=== PATIENT | female | born 1960 | race Caucasian/White ===

== ENCOUNTER → 2016-11-29 | Outpatient (CLI) | payer OTHER, BC ==
--- NOTE | 2016-11-29 15:49 | DIAGNOSTIC IMAGING REPORT ---
RIGHT ELBOW 3 VIEWS CLINICAL HISTORY: Fall with right elbow pain. FINDINGS: 3 views of the right elbow are obtained. No prior studies are available for comparison at the time of dictation. The skeletal structures are osteopenic. No fracture is seen. The joint spaces of the elbow appear preserved. No joint effusion is identified. Mild dorsal soft tissue edema is noted. IMPRESSION: Mild dorsal soft tissue swelling with no radiographic evidence of fracture. Electronically signed by: Kash Gagnon M.D. 11/29/2016 3:47 PM Dictated Date/Time: 11/29/2016 3:46 PM
== END | disposition home or self-care (01) ==
LOC: C.RAD1850 15:25
PROVIDERS: ATTEND Nurse Practitioner Adult Health
DX: M25.521 Pain in right elbow (principal)

== ENCOUNTER 2020-07-16 20:06 | Observation (INO) ==
[2020-07-16] MEDS ORDERED: KETOROLAC TROMETHAMINE 15 MG/ML VIAL IV ONE (20:45)
[2020-07-16] MEDS ORDERED: ACETAMINOPHEN 1,000 MG/100 ML VIAL IV STA (20:45)
[2020-07-16 20:52] LABS: Basophils # (auto) 0.01 K/uL (0-0.2); Basophils % (auto) 0.1 %; Eosinophils # (auto) 0.07 K/uL (0-0.5); Eosinophils % (auto) 0.6 %; Hemoglobin 13.8 g/dL (12.0-16.0); Immature Granulocytes # (auto) 0.02 K/uL (0.00-0.02); Immature Granulocytes % (auto) 0.2 %; Lymphocytes # (auto) 2.16 K/uL (1.2-3.4); Lymphocytes % (auto) 17.5 %; Mean Corpuscular Hemoglobin 29.9 pg (25-34); Mean Corpuscular Hgb Conc 32.1 g/dL (32-36); Mean Corpuscular Volume 93.1 fL (80-100); Mean Platelet Volume 10.6 fL (7.4-10.4); Monocytes # (auto) 0.85 K/uL (0.11-0.59); Monocytes % (auto) 6.9 %; Neutrophils # (auto) 9.24 K/uL (1.4-6.5); Neutrophils % (auto) 74.7 %; Platelet Count 228 K/uL (130-400); RDW Coefficient of Variation 12.7 % (11.5-14.5); RDW Standard Deviation 43.2 fL (36.4-46.3); Red Blood Count 4.62 M/uL (4.2-5.4); White Blood Count 12.35 K/uL (4.8-10.8)
[2020-07-16 20:59] LABS: Alanine Aminotransferase 21 U/L (12-78); Albumin Level 3.4 gm/dl (3.4-5.0); Aspartate Aminotransferase 12 U/L (15-37); BUN Creatinine Ratio 11.4 (10-20); Blood Urea Nitrogen 9 mg/dl (7-18); Calcium 9.3 mg/dl (8.5-10.1); Carbon Dioxide 30 mmol/L (21-32); Chloride 103 mmol/L (98-107); Creatinine Clr Calc Pharmacy 67.1 ml/min; Est GFR (African American) 98.1; Est GFR (Non-African American) 84.7; Glucose 151 mg/dl (70-99); Lipase 104 U/L (73-393); Magnesium 2.3 mg/dl (1.8-2.4); Potassium 3.8 mmol/L (3.5-5.1); Sodium 138 mmol/L (136-145)
[2020-07-16 21:10] LABS: Albumin Globulin Ratio 0.8 (0.9-2); Alkaline Phosphatase 81 U/L (45-117); Bilirubin,Total 0.6 mg/dl (0.2-1); Globulin 4.3 gm/dl (2.5-4.0); Total Protein 7.7 gm/dl (6.4-8.2); Troponin I < 0.015 ng/ml (0-0.045)
--- NOTE | 2020-07-16 21:59 | Emergency Department Note ---
History of Present Illness General Chief complaint: Abdominal Pain Stated complaint: CHEST PAIN FOR 4 DAYS Time Seen by Provider: 07/16/20 20:19 Source: patient Mode of arrival: ambulatory Limitations: no limitations History of Present Illness Provider complaint: Chest pain Onset (ago): day(s) 4 Location: chest Severity: moderate Pain Consistency: + intermittent Maximum Pain Intensity: 2 Current Pain Intensity: 2 Quality: + sharp Relieved By: + none Exacerbated By: + movement and + other (Deep breath) Associated symptoms: + loss of appetite; no chest pain, no fever/chills, no nausea/vomiting and no syncope Treatments prior to arrival: none This is a 60-year-old female from home who presents due to complaints of chest pain this week. Patient states on Friday she began noticing "a catch" beneath the left breast. She noted that this was worse lying flat and worse with a deep breath. States this otherwise seem to be intermittent was not otherwise tied to exertion. Patient denies any previous similar episodes. Patient states over the next 2 days she then began to notice intermittent upper back pain and headaches. Denies dizziness, vision changes, nausea or vomiting. Patient states yesterday she did not have a normal appetite although denies being overtly nauseated. Patient states then yesterday and today the pain seemed to be occurring on the right underneath the right breast on the same location. Patient denies any other abdominal pain. Patient thought perhaps this was all related to gas and tried taking a laxative. She did have positive bowel movements, no black or bloody stools. No change in her urine. Patient has had a prior , no other abdominal surgeries. Patient denies any recent change in activity, change in diet, or change in medications. No known sick contacts. No known exposure to any coronavirus positive individual. Pt seen during a time of high acuity and national emergency pandemic while wearing PPE. Home Medications Home Medications Medication Instructions Recorded Confirmed Type alfalfa 250 mg tablet 1,250 mg PO DAILY tab 01/24/20 07/16/20 History ascorbic acid (vitamin C) 1,000 mg 1,000 mg PO DAILY tab 01/24/20 07/16/20 History tablet calcium carbonate 500 mg calcium 500 mg PO DAILY 01/24/20 07/16/20 History (1,250 mg) tablet garlic 1,000 mg capsule 1,000 mg PO DAILY 01/24/20 07/16/20 History multivitamin 1 tab PO DAILY 01/24/20 07/16/20 History omega-3 fatty acids 1,000 mg 1,000 mg PO DAILY 01/24/20 07/16/20 History capsule vitamin E 200 unit capsule 200 units PO DAILY 01/24/20 07/16/20 History cholecalciferol (vitamin D3) 1,000 unit PO DAILY 07/16/20 07/16/20 History [Vitamin D3] Allergies Allergy/AdvReac Type Severity Reaction Status Date / Time No Known Allergies Allergy Verified 07/16/20 21:03 Past Med/Surg History Medical History No pertinent past medical history Surgical History S/P section S/P wisdom tooth extraction Family History Father Myocardial infarction Denies family history of Ovarian cancer Prostate cancer Breast cancer Colorectal cancer Social History Smoking Status: Never smoker Hx Alcohol Use: Yes Alcohol type: wine Hx Substance Use: No Preferred Language: Grenadian Communication Ability: Effective Visual Impairment: No Limitations Hearing Ability: Normal Beliefs That Will Affect Care: None marital status: Current Living Situation: Spouse current occupational status: employed current occupation: [employer] Other Information That Helps Us Care for You: No Feels Safe at Home: Yes Childhood Exposure to Second-Hand Smoke: Yes Dental Care, Regularly: Yes Physical Activity Frequency: 5-6 Times per Week Seatbelt Use: always Sunscreen Use: Yes Do you think of yourself as: straight/heterosexual Review of Systems See HPI for pertinent positives & negatives. and A total of 10 systems reviewed and were otherwise negative Physical Exam Vital Signs Vital Signs - 24 hr 07/17/20 01:04 Respiratory Rate 16 GENERAL: alert, well appearing, well nourished, no distress, non-toxic EYE EXAM: normal conjunctiva, PERRL and EOM's grossly intact OROPHARYNX: no exudate, no erythema, lips, buccal mucosa, and tongue normal and mucous membranes are moist NECK: supple, no nuchal rigidity, no adenopathy, non-tender LUNGS: Clear to auscultation. Normal chest wall mechanics, no w/r/r HEART: no murmurs, S1 normal and S2 normal, no reproducible tenderness over the ribs ABDOMEN: abdomen soft, non-tender, normo-active bowel sounds, no masses, no rebound or guarding. BACK: Back is symmetrical on inspection and there is no deformity, no midline tenderness, no CVA tenderness. SKIN: no rashes and no bruising UPPER EXTREMITIES: upper extremities are grossly normal. FROM, nml pulses b/l. LOWER EXTREMITIES: No pitting edema. FROM, nml pulses b/l. NEURO EXAM: Normal sensorium, cranial nerves II-XII grossly intact, normal speech, no gross weakness of arms, no gross weakness of legs. Gross sensation intact. Course Course 2321: Pt updated on results and plan. 0026: Discussed with Dr. Oliver. Administered Medications Acetaminophen (Acetaminophen 325 Mg Tab) 650 mg PO Q4H PRN PRN Reason: Pain or Fever Stop: 08/16/20 02:00 Last Admin: 07/17/20 18:51 Dose: 650 mg Documented by: [id number] Apixaban (Apixaban 5 Mg Tablet) 5 mg PO BID NYA Stop: 08/16/20 20:59 Last Admin: 07/17/20 20:42 Dose: 5 mg Documented by: [id number] Discontinued Medications Apixaban (Apixaban 5 Mg Tablet) 5 mg PO NOW STA Stop: 07/17/20 11:18 Last Admin: 07/17/20 11:51 Dose: 5 mg Documented by: [id number] Famotidine (Famotidine 20mg/5ml Iv Push) 20 mg IV ONE STA Stop: 07/16/20 22:07 Last Admin: 07/16/20 22:11 Dose: 20 mg Documented by: [id number] Heparin Sodium (Porcine) (Heparin Sod 5,000 Unit/0.5 Ml Vial) Confirm Administered Dose 5,000 units .ROUTE .STK-MED ONE Stop: 07/16/20 23:51 Last Admin: 07/17/20 00:08 Dose: 5,000 units Documented by: [id number] Cosigned by: [id number] Heparin Sodium/Dextrose (Heparin Iv Standard With Bolus) 1 ea IV NOW STA; Protocol Stop: 07/16/20 23:34 Last Admin: 07/17/20 00:13 Dose: Not Given Documented by: [id number] Acetaminophen (Ofirmev) 1,000 mg in 100 mls @ 400 mls/hr IV NOW STA Stop: 07/16/20 20:59 Last Infusion: 07/16/20 21:13 Dose: 0 mls/hr Documented by: [id number] Admin: 07/16/20 20:54 Dose: 400 mls/hr Documented by: [id number] Heparin Sodium/Dextrose (Heparin Sodium/Dextrose) 25,000 units in 500 mls @ 0 mls/hr IV .Q0M [facility]; Protocol Stop: 08/15/20 23:44 Last Titration: 07/17/20 11:18 Dose: 0 units/hr, 0 mls/hr Documented by: [id number] Cosigned by: [id number] Titration: 07/17/20 08:30 Dose: 950 units/hr, 19 mls/hr Documented by: [id number] Cosigned by: [id number] Titration: 07/17/20 07:20 Dose: 0 units/hr, 0 mls/hr Documented by: [id number] Cosigned by: [id number] Admin: 07/17/20 00:11 Dose: 1,050 units/hr, 21 mls/hr Documented by: [id number] Cosigned by: [id number] Ioversol (Optiray 320 125ml) 119 ml IV ONCE ONE Stop: 07/16/20 22:54 Last Admin: 07/16/20 22:53 Dose: 119 ml Documented by: [id number] Ketorolac Tromethamine (Ketorolac Tromethamine 15 Mg/Ml Vial) 10 mg IV NOW ONE Stop: 07/16/20 20:46 Last Admin: 07/16/20 20:54 Dose: 10 mg Documented by: [id number] Critical Care Time Critical Care Time: Yes Total Critical Care Time: 35 Critical care of 35 min performed to assess and manage high likelihood of life- threatening chest pain, involving labs and imaging performed with assessment to evaluate chest pain diagnosis with frequent reassessment. This time includes bedside time, treatment discussions with patient/family/consultants, documentation time and excludes procedure time. Medical Decision Making Differential Diagnosis Differential diagnoses includes but is not limited to acute coronary syndrome, myocardial infarction, pericarditis, pulmonary embolus, aortic dissection, pneumonia, pneumothorax, musculoskeletal, shingles, esophageal. Medical Records Attestation: I reviewed the patient's medical records. Home Medications Current Medication List: was personally reviewed by me Laboratory Data Attestation: I reviewed the patient's lab results. Result diagrams: 07/17/20 08:36 07/17/20 08:36 Lab Results 07/16/20 07/16/20 07/16/20 Range/Units 20:30 20:30 20:30 WBC 12.35 H (4.8-10.8) K/uL RBC 4.62 (4.2-5.4) M/uL Hgb 13.8 (12.0-16.0) g/dL Hct 43.0 (37-47) % MCV 93.1 (80-100) fL MCH 29.9 (25-34) pg MCHC 32.1 (32-36) g/dL RDW Std Deviation 43.2 (36.4-46.3) fL RDW Coeff of Michelle 12.7 (11.5-14.5) % Plt Count 228 (130-400) K/uL MPV 10.6 H (7.4-10.4) fL Immature Gran % (Auto) 0.2 % Neut % (Auto) 74.7 % Lymph % (Auto) 17.5 % [place] % (Auto) 6.9 % Eos % (Auto) 0.6 % Baso % (Auto) 0.1 % Neut # (Auto) 9.24 H (1.4-6.5) K/uL Lymph # (Auto) 2.16 (1.2-3.4) K/uL [place] # (Auto) 0.85 H (0.11-0.59) K/uL Eos # (Auto) 0.07 (0-0.5) K/uL Baso # (Auto) 0.01 (0-0.2) K/uL Immature Gran # (Auto) 0.02 (0.00-0.02) K/uL D-Dimer 3940 H* (0-500) ug/L FEU Sodium 138 (136-145) mmol/L Potassium 3.8 (3.5-5.1) mmol/L Chloride 103 (98-107) mmol/L Carbon Dioxide 30 (21-32) mmol/L Anion Gap 4.0 (3-11) BUN 9 (7-18) mg/dl Creatinine 0.76 (0.6-1.2) mg/dl Est Cr Clr Drug Dosing 67.1 ml/min Est GFR ( Amer) 98.1 Est GFR (Non-Af Amer) 84.7 BUN/Creatinine Ratio 11.4 (10-20) Glucose 151 H (70-99) mg/dl Calcium 9.3 (8.5-10.1) mg/dl Magnesium 2.3 (1.8-2.4) mg/dl Total Bilirubin 0.6 (0.2-1) mg/dl AST 12 L (15-37) U/L ALT 21 (12-78) U/L Alkaline Phosphatase 81 (45-117) U/L Troponin I < 0.015 (0-0.045) ng/ml Total Protein 7.7 (6.4-8.2) gm/dl Albumin 3.4 (3.4-5.0) gm/dl Globulin 4.3 H (2.5-4.0) gm/dl Albumin/Globulin Ratio 0.8 L (0.9-2) Lipase 104 (73-393) U/L TSH 1.780 (0.300-4.500) uIu/ml Imaging Data Attestation: I personally reviewed and interpreted this imaging study as follows: My Impression: X-ray: I interpreted the following studies. Chest: A single view study of the chest was reviewed and was negative for cardiomegaly, focal infiltrate, effusion, pulmonary edema, or wide mediastinum. Radiologist's Impression: Ultrasound abdomen limited: No intrahepatic lesion or ductal dilatation. CBD 2 mm. Slightly contracted gallbladder. Negative for stones. Normal right kidney at 10.4 cm. Radiologist: Kennedy Jennings MD CTA chest: Left upper lobe posterior segment 1.5 cm area of patchy groundglass opacity. Consider focal pneumonitis. Consider a small area of pulmonary infarct secondary to PE. Mild shaina-fissural thickening right major fissure. . Anterior right middle lobe triangle area of patchy opacity potentially represents infarct secondary to pulmonary embolism. Normal caliber of the aorta. Heart and pericardium are unremarkable. Negative for coronary calcification. Pulmonary artery: Normal caliber of the main pulmonary artery. Negative for right ventricular strain. Extensive pulmonary emboli are noted involving the right lower lobe segmental, subsegmental vessels, right middle lobe and right proximal upper lobe pulmonary artery. Additional thrombus noted in the left upper lobe and proximal left lower lobe segmental pulmonary arteries. Bones: Negative for fracture. Summary: 1. Right greater than left moderate pulmonary embolism with peripheral triangular areas of probable infarct involving the anterior inferior right middle lobe and posterior left upper lobe. 2. Negative for right ventricular strain. Radiologist: Kennedy Jennings MD ECG Data Attestation: I personally reviewed and interpreted this ECG as follows: Indication: + chest pain Rate (beats per minute): 86 Rhythm: + normal sinus ECG Intervals/blocks: + Normal QRS and + Normal QT ECG Desdemona: + Normal ECG ST segments: + Normal ST segments Blood Pressure Blood Pressure Findings: Elevated blood pressure Blood Pressure Disposition: further management by hospitalist MDM Narrative Patient presenting here with atypical intermittent chest pains initially on the left and now on the right. Patient low risk for ACS and low risk for PE, however could not rule out using PERC criteria so a dimer was added to the labs that were drawn and sent. Initial chest x-ray unremarkable, however patient had an elevated d-dimer and was sent for CT angiography of the chest. CT unfortunately showed multiple bilateral PEs with likely areas of evolving pulmonary infarct. No evidence of RV strain, and no saddle embolus. Patient remained hemodynamically stable throughout. Patient's troponin negative, other labs reassuring. Patient made aware of all results and need for additional evaluation as well as initiation of IV anticoagulation. Heparin bolus and drip was ordered, case discussed with hospitalist. An order was placed for continuous cardiac monitoring. The monitor shows a rate of 66_ with normal sinus_ rhythm. Impression & Plan Chest pain, Pulmonary embolism Discharge Plan Visit Data Chief Complaint: Abdominal Pain Stated Complaint: CHEST PAIN FOR 4 DAYS ED Provider: Jennie Zamora Discharge Problem: Chest pain, Pulmonary embolism Patient Disposition: Admitted As Inpatient Discharge Instructions Interventions: ED Discharge Assessment Last Done: 07/17/20 01:20 Discharge Problem: Chest pain Qualifiers: Chest pain type: unspecified Qualified Code(s): R07.9 - Chest pain, unspecified Pulmonary embolism Qualifiers: Pulmonary embolism type: multiple subsegmental (without acute cor pulmonale) Qualified Code(s): I26.94 - Multiple subsegmental pulmonary emboli without acute cor pulmonale
[2020-07-16] MEDS ORDERED: FAMOTIDINE 20MG/5ML IV PUSH IV STA (22:06)
[2020-07-16 22:19] LABS: D Dimer 3940 ug/L FEU (0-500)
[2020-07-16] MEDS ORDERED: OPTIRAY 320 125ml IV ONE (22:53)
[2020-07-16] MEDS ORDERED: HEPARIN SODIUM/DEXTROSE 25,000 UNITS/500 ML BAG IV SCH (23:45)
[2020-07-16] MEDS ORDERED: HEPARIN SOD 5,000 UNIT/0.5 ML VIAL ONE (23:50)
--- NOTE | 2020-07-17 00:39 | History & Physical Report ---
Date of Service July 17, 2020 Assessment & Plan (1) Pulmonary embolism: Previously relatively healthy 60 y/o female with first episode of Pulmonary Embolism. - No clear identifiable risk factors, unclear etiology. - She has been stable not requiring any supplemental O2 - Heparin bolus started in ED and will continue treatment with Heparin. - Case management consult placed to help with any authorizations for outpatient anticoagulation. - CTA Chest showed = Right greater than left moderate pulmonary embolism with peripheral triangular areas of probable infarct involving the anterior inferior right middle lobe and posterior left upper lobe. 2. Negative for right ventricular strain. - Cardiac monitoring overnight. - Continuous Pulse Ox - Defer any genetic workup to outpatient provider. DVT ppx: Heparin FENGI: Heart healthy diet Code: Full Dispo: Obs - Med/surg tele (2) Chest pain: Negative trop in ED, will complete trend. Most likely referred from pleural involvement from PEs. Not requiring any analgesics, Tylenol PO ordered PRN for Pain Vital signs reassuring, not tachycardic. History of Present Illness Chief Complaint: Chest Pain Primary Care Provider: Yvon Orlando DO Vanesa Stewart is a 60 y/o female relatively previous healthy hx of dyslipidemia presented to [facility] ED with chest pain. She has had chest pain starting about 5 days ago. It is located to left anterior chest that was worse with deep breaths. She noticed no significant shortness of breath. She notes she thought it was related to GI gas. She took a laxative, had a normal BM. The pain lessened mildly the next day. She then noticed the pain migrated to the right anterior chest, with same pain on deep breaths. She notes pain was improved by not moving or taking deep breaths. She noted she had last night of posterior lower neck pain that radiated to her left anterior chest pain. She denies any nausea, fever, chills, palpitations, vomiting. She denies any leg pain or leg swelling. She did not go on any long car/plane trips prior to onset of symptoms. No recent surgeries or prolonged periods of immobilization. No prior PEs or DVTs. She was found to have PEs to both lungs with probable infarct involving the anterior inferior right middle lobe and posterior left upper lobe. She notes no significant discomfort at the moment. She is stable, not requiring any supplemental O2. Allergies Allergy/AdvReac Type Severity Reaction Status Date / Time No Known Allergies Allergy Verified 07/16/20 21:03 Home Medications Home Medications Medication Instructions Recorded Confirmed Type alfalfa 250 mg tablet 1,250 mg PO DAILY tab 01/24/20 07/16/20 History ascorbic acid (vitamin C) 1,000 mg 1,000 mg PO DAILY tab 01/24/20 07/16/20 History tablet calcium carbonate 500 mg calcium 500 mg PO DAILY 01/24/20 07/16/20 History (1,250 mg) tablet garlic 1,000 mg capsule 1,000 mg PO DAILY 01/24/20 07/16/20 History multivitamin 1 tab PO DAILY 01/24/20 07/16/20 History omega-3 fatty acids 1,000 mg 1,000 mg PO DAILY 01/24/20 07/16/20 History capsule vitamin E 200 unit capsule 200 units PO DAILY 01/24/20 07/16/20 History cholecalciferol (vitamin D3) 1,000 unit PO DAILY 07/16/20 07/16/20 History [Vitamin D3] Past Med/Surg History Medical History No pertinent past medical history Surgical History S/P section S/P wisdom tooth extraction Family History Father Myocardial infarction Denies family history of Ovarian cancer Prostate cancer Breast cancer Colorectal cancer Social History Smoking Status: Never smoker Hx Alcohol Use: Yes Alcohol type: wine Hx Substance Use: No Preferred Language: Gibraltarian Communication Ability: Effective Visual Impairment: No Limitations Hearing Ability: Normal Beliefs That Will Affect Care: None marital status: Current Living Situation: Spouse current occupational status: employed 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 Other Information That Helps Us Care for You: No Feels Safe at Home: Yes Childhood Exposure to Second-Hand Smoke: Yes Dental Care, Regularly: Yes Physical Activity Frequency: 5-6 Times per Week Seatbelt Use: always Sunscreen Use: Yes Do you think of yourself as: straight/heterosexual Review of Systems Review of Systems: All systems reviewed & are unremarkable except as noted in HPI & below Constitutional: no fever and no chills Eyes: no diplopia and no spots in vision Ear, Nose, Mouth, Throat: no nasal congestion, no nasal obstruction and no epistaxis Respiratory: no cough and no hemoptysis Cardiovascular: as per Subjective / HPI; no syncope and no edema Gastrointestinal: as per Subjective / HPI Genitourinary: no dysuria and no urinary frequency Musculoskeletal: as per Subjective / HPI Integumentary: + urticaria (one month ago hives following insect sting that resolved); no lesions Neurologic: no localized weakness, no numbness and no headache(s) Endocrine: no polydipsia, no polyphagia and no polyuria Physical Exam Constitutional: WD/WN, vitals as above cooperative and comfortable Eyes: PERRL, conjunctivae normal, anicteric sclerae ENMT: external ear and nose normal, oropharynx normal Neck: normal visual inspection and trachea midline Respiratory: right anterior crackles on inspiration, posterior base mild crackles on inspiration, otherwise good air movement Cardiovascular: RRR, no murmur, no edema Gastrointestinal (Abdomen): Percussion/Palpation: abdomen soft; abdomen nontender, no guarding and abdomen not rigid Musculoskeletal: Head/Neck/Chest: normocephalic and head atraumatic Skin: no rashes, warm and dry reyna Neurologic: moves all extremities and awake Psychiatric: A+Ox3, euthymic affect Results & Data Results & Data ([facility]) Vital Signs (Past 12 Hours) Vital Signs Temp Pulse Resp BP Pulse Ox 07/16/20 23:00 80 17 136/75 96 07/16/20 22:30 78 17 130/71 96 07/16/20 22:00 79 15 123/72 95 07/16/20 21:43 80 20 129/69 97 07/16/20 20:30 105 H 19 144/75 H 98 07/16/20 20:12 37.1 C 99 H 18 145/71 H 98 Laboratory Results Laboratory Results - last 24 hr 07/16/20 07/16/20 07/16/20 20:30 20:30 20:30 WBC 12.35 H RBC 4.62 Hgb 13.8 Hct 43.0 MCV 93.1 MCH 29.9 MCHC 32.1 RDW Std Deviation 43.2 RDW Coeff of Michelle 12.7 Plt Count 228 MPV 10.6 H Immature Gran % (Auto) 0.2 Neut % (Auto) 74.7 Lymph % (Auto) 17.5 [place] % (Auto) 6.9 Eos % (Auto) 0.6 Baso % (Auto) 0.1 Neut # (Auto) 9.24 H Lymph # (Auto) 2.16 [place] # (Auto) 0.85 H Eos # (Auto) 0.07 Baso # (Auto) 0.01 Immature Gran # (Auto) 0.02 D-Dimer 3940 H* Sodium 138 Potassium 3.8 Chloride 103 Carbon Dioxide 30 Anion Gap 4.0 BUN 9 Creatinine 0.76 Est Cr Clr Drug Dosing 67.1 Est GFR ( Amer) 98.1 Est GFR (Non-Af Amer) 84.7 BUN/Creatinine Ratio 11.4 Glucose 151 H Calcium 9.3 Magnesium 2.3 Total Bilirubin 0.6 AST 12 L ALT 21 Alkaline Phosphatase 81 Troponin I < 0.015 Total Protein 7.7 Albumin 3.4 Globulin 4.3 H Albumin/Globulin Ratio 0.8 L Lipase 104 TSH 1.780 Code Status & VTE Plan Code Status Full Code VTE Prophylaxis Plan VTE Prophylaxis will be ordered: Yes Supervising Physician Co-Signing Physician Notes Patient seen and examined, chart reviewed, case discussed with Dr. Kebede I agree with his assessment and plan as documented above. Briefly, patient with possible developing infarct a 60-year-old female presenting with chest discomfort, pleuritic in nature. Found to have bilateral PEs involving main and subsegmental vessels with possible developing pulmonary infarct no saddle PE. No RV strain. On exam patient is afebrile, hemodynamically stable, no respiratory distress, saturating well on room air Non-toxic, no acute distress Heart+ S1/S2, regular, no M/R/G LungsCTA Abdomen+ BS, soft, nontender/nondistended Extremitieswarm, well-perfused, no clubbing/cyanosis/edema, no calf tenderness Labs and images reviewed Assessment/[id number] female presenting with bilateral PEs, developing pulmonary infarct. Presently afebrile, hemodynamically stable, adequate oxygenation on room air. Pain is minimal. Etiology uncertain. Patient denies prior history of clots or family history of VTE, no trauma. She is up-to-date on age-appropriate cancer screenings with exception of being due for colono scopy. Admit to medical floor with telemetry monitoring Heparin drip Initiate oral anticoagulation in the morning Remainder of plan as above Resident Activity Tracking Resident Involvement: Resident Care Provided Care Provided: Adult Hospital Medicine (1) Pulmonary embolism Pulmonary embolism type: multiple subsegmental (without acute cor pulmonale) Qualified Code(s): I26.94 - Multiple subsegmental pulmonary emboli without acute cor pulmonale (2) Chest pain Chest pain type: unspecified Qualified Code(s): R07.9 - Chest pain, unspecified
[2020-07-17] MEDS ORDERED: ALUMINUM/MAGNESIUM SUSP 30 ML UDC PO PRN (02:01)
[2020-07-17] MEDS ORDERED: ONDANSETRON INJ 2 MG/ML 2 ML VIAL IV PRN (02:01)
[2020-07-17] MEDS ORDERED: MAGNESIUM HYDROXIDE SUSP 30 ML UDC PO PRN (02:01)
[2020-07-17] MEDS ORDERED: POLYETHYLENE (MIRALAX) 17 GM PACK PO PRN (02:01)
--- NOTE | 2020-07-17 04:40 | Billing Data ---
Date of Service July 17, 2020 Coding Level of Care Code 27201 OBS Care - Level 2
[2020-07-17 07:12] LABS: Partial Thromboplastin Ratio 3.4
[2020-07-17 07:16] LABS: Partial Thromboplastin Time 94.9 Seconds (21.0-31.0)
--- NOTE | 2020-07-17 07:51 | Ultrasound Report ---
ABDOMINAL ULTRASOUND, RIGHT UPPER QUADRANT HISTORY: Right upper quadrant pain.. COMPARISON: None. FINDINGS: Pancreas: The pancreas demonstrates a normal echotexture. Liver: Unremarkable. Gallbladder: The gallbladder is contracted. No definite gallbladder wall thickening given the decompr essed appearance. No definite gallstones. CBD: 2 mm. Right kidney: No hydronephrosis. IMPRESSION: No significant abnormality identified within the right upper quadrant. Contracted gallbladder. ACT 112: Negative or not required by law. Electronically signed by: Sudhakar Krishnamurthy M.D. 07/17/2020 7:49 AM
--- NOTE | 2020-07-17 07:58 | XRay Report ---
XR chest 1V portable HISTORY: Atypical chest pain COMPARISON: None. FINDINGS: Patchy airspace opacity within the base of the right lung. No pneumothorax. No pleural effu sions. The heart is top normal in size. No pleural effusions. IMPRESSION: Patchy right basilar airspace opacity. This may represent a pneumonia. ACT 112: Negative or not required by law. Electronically signed by: Sudhakar Krishnamurthy M.D. 07/17/2020 7:57 AM
--- NOTE | 2020-07-17 08:14 | CT Scan Report ---
CHEST CTA for PULMONARY ARTERIES CT DOSE: 217.81 mGy.cm HISTORY: Right-sided chest pain. TECHNIQUE: Multiaxial CT images of the chest were performed following the intravenous administration of contrast to evaluate the pulmonary arteries. Maximal intensity projection images were also obtaine d. A dose lowering technique was utilized adhering to the principles of ALARA. COMPARISON STUDY: None. FINDINGS: Normal caliber thoracic aorta with no evidence for dissection. The heart is normal in size. No pericardial effusions. Trace right pleural effusion. Multiple bilateral pulmonary emboli most pro nounced within the right lung with emboli seen within the distal right main pulmonary artery, all lob ar branches, and the majority of the segmental/subsegmental branches. No mediastinal or hilar lymphad enopathy. Normal caliber esophagus. The visualized liver and spleen are unremarkable. No suspicious l ytic are blastic osseous lesions. Focal or areas of peripheral consolidation within the right middle lobe and base of the right lower lobe as well as the periphery of the left upper lobe. These favor pu lmonary infarcts. The central airways are patent. No pneumothorax. Subpleural nodular densities along the right minor fissure. These are likely benign. IMPRESSION: 1. Multiple bilateral pulmonary emboli, right greater than left. 2. Focal area of consolidation seen within the right middle lobe, right lower lobe, and left upper lo be likely representing pulmonary infarct. [address] follow-up recommended to ensure resolution . 3. Trace right pleural effusion. ACT 112: Negative or not required by law. Electronically signed by: Sudhakar Krishnamurthy M.D. 07/17/2020 8:12 AM
[2020-07-17 09:30] LABS: Basophils # (auto) 0.02 K/uL (0-0.2); Basophils % (auto) 0.2 %; Eosinophils # (auto) 0.28 K/uL (0-0.5); Eosinophils % (auto) 2.6 %; Hematocrit (blood only) 42.9 % (37-47); Hemoglobin 13.8 g/dL (12.0-16.0); Immature Granulocytes # (auto) 0.02 K/uL (0.00-0.02); Immature Granulocytes % (auto) 0.2 %; Lymphocytes # (auto) 1.93 K/uL (1.2-3.4); Lymphocytes % (auto) 17.7 %; Mean Corpuscular Hemoglobin 30.5 pg (25-34); Mean Corpuscular Hgb Conc 32.2 g/dL (32-36); Mean Corpuscular Volume 94.7 fL (80-100); Mean Platelet Volume 10.9 fL (7.4-10.4); Monocytes # (auto) 1.02 K/uL (0.11-0.59); Monocytes % (auto) 9.3 %; Neutrophils # (auto) 7.64 K/uL (1.4-6.5); Platelet Count 217 K/uL (130-400); RDW Coefficient of Variation 12.7 % (11.5-14.5); Red Blood Count 4.53 M/uL (4.2-5.4); White Blood Count 10.91 K/uL (4.8-10.8)
[2020-07-17 09:59] LABS: BUN Creatinine Ratio 14.4 (10-20); Calcium 8.8 mg/dl (8.5-10.1); Creatinine Clr Calc Pharmacy 73.9 ml/min; Est GFR (African American) 108.9; Potassium 4.3 mmol/L (3.5-5.1)
--- NOTE | 2020-07-17 10:18 | Electrocardiogram Report ---
Test Reason : Blood Pressure : / mmHG Vent. Rate : 086 BPM Atrial Rate : 086 BPM P-R Int : 122 ms QRS Dur : 090 ms QT Int : 340 ms P-R-T Axes : 042 079 041 degrees QTc Int : 406 ms Normal sinus rhythm Normal ECG No previous ECGs available Confirmed by Johny Blanco ([id number]) on 07/17/2020 10:18:41 AM Referred By: REFERRED SELF Confirmed By:Johny Blanco
--- NOTE | 2020-07-17 11:02 | Hospitalist Progress Note ---
Date of Service July 17, 2020 Assessment & Plan (1) Pulmonary embolism: * Previously relatively healthy 60 y/o female with first episode of Pulmonary Embolism. * No clear identifiable risk factors, unclear etiology. * She has been stable not requiring any supplemental O2 -- 94% on RA * CTA for PE showed right greater than left moderate pulmonary embolism with peripheral triangular areas of probable infarct involving the anterior inferior right middle lobe and posterior left upper lobe. 2. Negative for right ventricular strain. * Continuous pulse ox * Factor V, homocysteine ordered, pending -- all other will need ordered once off anticoagulation * Heparin gtt -- to be discontinued as starting eliquis * Initiating eliquis BID this evening -- was provided 30 day coupon by CM department. Reynolds checked ~67$/month * Follow up with hematology outpatient (2) Chest pain: * Likely secondary to above. Troponin negative x 2. Third set pending * EKG NSR 86bpm -- has been NSR 80-90s on telemetry * Treat #1 (3) DVT prophylaxis: * Heparin --> Eliquis as above Dispo: possible discharge tomorrow Admission and Anticipated Discharge Date Admission Date: July 17, 2020 Supervising Physician Co-Signing Physician Notes Pt d/w Ms. Benjamin, PAC Agree with plan as outlined above PE, hypercoag pending Planning for transition to eliquis today and possible d/c home tomorrow Subjective BRIDGE NOTE: Patient evaluated this morning. Still with some sharp pains to beneath R/L rib cage, worse with taking deep breaths. No previous hx DVT or PE personally or in her family. Does take monthly car rides for 3 months at a time and trip earlier this year to [facility] but nothing outside of the normal. States they take frequent stops when on longer trips but not with the 3 hour trips. Last trip within the last week although patient states she developed chest pains prior to this trip but was hoping they would go away. Not on control. Does take over the counter herbal supplements including alfalfa, garlic, fish oil, vitamin C, calcium, Vit D. Does have planned dental surgery upcoming weeks that is not urgent but on a tooth she previously has had a root canal done. Plans for Eliquis this evening and some labs while inpatient but others will need done outpatient once off anticoagulation. Physical Exam Constitutional: WD/WN, vitals as above no acute distress Respiratory: normal respiratory effort; no respiratory distress Auscultation: + crackles (posterior on inspiration) Cardiovascular: RRR, no murmur, no edema Gastrointestinal (Abdomen): normal bowel sounds, soft, nontender, no hepatosplenomegaly Neurologic: PERRL, EOMI, accommodation nl, no face palsy, no dysarthria Results & Data Results & Data ([facility]) Vital Signs (Past 12 Hours) Vital Signs Temp Pulse Pulse Pulse Resp BP BP 07/17/20 07:56 74 07/17/20 07:11 36.8 C 73 17 120/79 07/17/20 04:34 36.6 C 60 18 132/81 07/17/20 02:21 68 07/17/20 02:03 36.6 C 76 20 07/17/20 01:04 16 07/17/20 00:30 82 21 153/73 H 07/17/20 00:00 82 17 147/88 H 07/16/20 23:30 82 18 151/77 H BP Pulse Ox 07/17/20 07:56 07/17/20 07:11 97 07/17/20 04:34 98 07/17/20 02:21 07/17/20 02:03 122/80 96 07/17/20 01:04 07/17/20 00:30 97 07/17/20 00:00 98 07/16/20 23:30 98 PG Care Time/CCT Total # of Minutes Spent Total Time Spent with Patient: Total time spent is greater than 50% in coordination of care (as documented) at patient's floor/unit and/or counseling patient: Coding Level of Care Code None Diagnoses Pulmonary embolism I26.94 Pulmonary embolism type: multiple subsegmental (without acute cor pulmonale) Chest pain R07.9 Chest pain type: unspecified DVT prophylaxis Z29.9 (1) Pulmonary embolism Pulmonary embolism type: multiple subsegmental (without acute cor pulmonale) Qualified Code(s): I26.94 - Multiple subsegmental pulmonary emboli without acute cor pulmonale (2) Chest pain Chest pain type: unspecified Qualified Code(s): R07.9 - Chest pain, unspecified
[2020-07-17] MEDS ORDERED: APIXABAN 5 MG TABLET PO STA (11:17)
[2020-07-17 14:36] LABS: Partial Thromboplastin Time 28.1 Seconds (21.0-31.0)
[2020-07-17] MEDS: ACETAMINOPHEN 325 MG TAB PO PRN (18:51)
[2020-07-17] MEDS: APIXABAN 5 MG TABLET PO SCH (20:42)
[2020-07-18] MEDS: APIXABAN 5 MG TABLET PO SCH (07:53)
[2020-07-18 08:01] LABS: Basophils # (auto) 0.01 K/uL (0-0.2); Basophils % (auto) 0.1 %; Eosinophils # (auto) 0.29 K/uL (0-0.5); Eosinophils % (auto) 3.2 %; Hematocrit (blood only) 42.6 % (37-47); Hemoglobin 13.8 g/dL (12.0-16.0); Immature Granulocytes # (auto) 0.02 K/uL (0.00-0.02); Immature Granulocytes % (auto) 0.2 %; Lymphocytes # (auto) 1.49 K/uL (1.2-3.4); Lymphocytes % (auto) 16.2 %; Mean Corpuscular Hemoglobin 30.1 pg (25-34); Mean Corpuscular Hgb Conc 32.4 g/dL (32-36); Mean Corpuscular Volume 92.8 fL (80-100); Monocytes # (auto) 0.86 K/uL (0.11-0.59); Monocytes % (auto) 9.4 %; Neutrophils # (auto) 6.51 K/uL (1.4-6.5); Neutrophils % (auto) 70.9 %; Platelet Count 227 K/uL (130-400); RDW Coefficient of Variation 12.7 % (11.5-14.5); RDW Standard Deviation 43.2 fL (36.4-46.3); Red Blood Count 4.59 M/uL (4.2-5.4); White Blood Count 9.18 K/uL (4.8-10.8)
[2020-07-18 08:29] LABS: BUN Creatinine Ratio 15.7 (10-20); Calcium 9.2 mg/dl (8.5-10.1); Creatinine Clr Calc Pharmacy 67.1 ml/min; Est GFR (African American) 98.1; Est GFR (Non-African American) 84.7; Potassium 4.8 mmol/L (3.5-5.1)
[2020-07-18 08:31] LABS: Albumin Globulin Ratio 0.7 (0.9-2); Bilirubin,Total 0.7 mg/dl (0.2-1); Globulin 4.2 gm/dl (2.5-4.0); Total Protein 7.2 gm/dl (6.4-8.2)
[2020-07-18] MEDS ORDERED: APIXABAN 5 MG TABLET PO STA ×3 (08:37→08:40)
[2020-07-18 08:44] LABS: Chol HDL Ratio 3; Cholesterol 198 mg/dl (0-200); HDL Cholesterol 60 mg/dl; LDL Cholesterol Calculated 117 mg/dl; Triglycerides 105 mg/dl (0-150); VLDL Cholesterol 21 mg/dl
--- NOTE | 2020-07-18 09:10 | Discharge Summary ---
Date of Service July 18, 2020 Admission HPI Per Admitting Provider Vanesa Stewart is a 60 y/o female relatively previous healthy hx of dyslipidemia presented to [facility] ED with chest pain. She has had chest pain starting about 5 days ago. It is located to left anterior chest that was worse with deep breaths. She noticed no significant shortness of breath. She notes she thought it was related to GI gas. She took a laxative, had a normal BM. The pain lessened mildly the next day. She then noticed the pain migrated to the right anterior chest, with same pain on deep breaths. She notes pain was improved by not moving or taking deep breaths. She noted she had last night of posterior lower neck pain that radiated to her left anterior chest pain. She denies any nausea, fever, chills, palpitations, vomiting. She denies any leg pain or leg swelling. She did not go on any long car/plane trips prior to onset of symptoms. No recent surgeries or prolonged periods of immobilization. No prior PEs or DVTs. She was found to have PEs to both lungs with probable infarct involving the anterior inferior right middle lobe and posterior left upper lobe. She notes no significant discomfort at the moment. She is stable, not requiring any supplemental O2. Admission Exam Per Admitting Provider Constitutional: WD/WN, vitals as above cooperative and comfortable Eyes: PERRL, conjunctivae normal, anicteric sclerae ENMT: external ear and nose normal, oropharynx normal Neck: normal visual inspection and trachea midline Respiratory: right anterior crackles on inspiration, posterior base mild crackles on inspiration, otherwise good air movement Cardiovascular: RRR, no murmur, no edema Gastrointestinal (Abdomen): Percussion/Palpation: abdomen soft; abdomen nontender, no guarding and abdomen not rigid Musculoskeletal: Head/Neck/Chest: normocephalic and head atraumatic Skin: no rashes, warm and dry reyna Neurologic: moves all extremities and awake Psychiatric: A+Ox3, euthymic affect Principal Diagnosis Pulmonary Emboli Discharge Exam Constitutional WD/WN, vitals as above no acute distress Eyes + anicteric sclerae and PERRL ENMT external ear and nose normal, oropharynx normal Neck normal visual inspection Respiratory normal respiratory effort; no respiratory distress Auscultation: lungs clear to auscultation bilaterally Cardiovascular RRR, no murmur, no edema Gastrointestinal (Abdomen) normal bowel sounds, soft, nontender, no hepatosplenomegaly Musculoskeletal no cyanosis or clubbing, extremities motor strength 5/5 Skin no rashes, warm and dry Neurologic PERRL, EOMI, accommodation nl, no face palsy, no dysarthria Psychiatric A+Ox3, euthymic affect Lymphatic no cervical or axillary lymphadenopathy Discharge Data Allergies Allergy/AdvReac Type Severity Reaction Status Date / Time No Known Allergies Allergy Verified 07/16/20 21:03 Consultations 07/17/20 01:06 ED Decision to Admit Stat 07/17/20 02:01 Consult Case Management - Discharge Planning Routine Ordered Studies 07/16/20 20:45 US abdomen limited Stat 07/16/20 22:29 CT angio chest PE protocol Urgent Hospital Course (1) Pulmonary embolism: * Previously relatively healthy 60 y/o female with first episode of Pulmonary Embolism. * No clear identifiable risk factors, unclear etiology --> although, upon re- evaluation patient does believe she had a possible bite to her left leg approximately a month ago and developed swelling and erythema and was painful but had since resolved. Likely source unless hypercoag studies reveal other * She has been stable not requiring any supplemental O2 -- 95% on RA * CTA for PE showed right greater than left moderate pulmonary embolism with peripheral triangular areas of probable infarct involving the anterior inferior right middle lobe and posterior left upper lobe. 2. Negative for right ventricular strain. * Factor V, homocysteine ordered, pending -- all other will need ordered once off anticoagulation * Placed on heparin gtt and transitioned to Eliquis 07/17 (she had only received 5mg dosing and was given extra 5mg am 07/18 and will continue Eliquis 10mg BID x 7 days then reduce dose to 5mg BID * Follow up with Hematology outpatient to be arranged by nurse navigator (2) Chest pain: * Likely secondary to above. Troponin negative * EKG NSR 86bpm -- has been NSR 80-90s on telemetry * Treat #1 * Able to utilize tylenol as needed but educated to avoid NSAIDs (3) DVT prophylaxis: * Heparin --> Eliquis as above Discharged home. Total Time Total Time Spent Total Time Spent (In Minutes): 60 Discharge Plan Discharge Items Patient Disposition: Home - Self-Care Reason For Visit: PEs Discharge Diagnosis: Pulmonary Emboli Goals: You have been hospitalized for an acute medical problem. During your stay at [facility], we have made an effort to correct the problem that brought you to the hospital while keeping you as comfortable as possible. Medications were used to bring your condition under control and your discharge instructions will include directions for any medications you should take after leaving the hospital. Please make sure you see your Primary Care Provider as part of your follow up plan. Activity: Resume your previous activity Non-emergency contact: Primary Care Provider Call non-emergency contact if: you have any medication questions, your symptoms worsen and your pain is not controlled Follow-up/Referrals: Cuate Vargas DO [Physician] - (You will received a call from Dr. Vargas's office to schedule your appt.) Yvon Orlando DO [Primary Care Provider] - 07/24/20 9:20 am (You have an appointment with Dr. Orlando on 07/24 at 9:20. If you can not keep this appointment please call, ) Diet: Regular Addtl Attending Provider Instructions: You have been hospitalized and found to have multiple pulmonary emboli in your lungs. You were started on medication to help dissolve this clot and transitioned to Eliquis. It is recommended that you have a repeat CT scan in 3 months to ensure resolution of areas of possible infarction, as discussed. You were given an extra 5mg dose this morning, as the recommendations are to continue Eliquis 10mg by mouth TWICE daily for SEVEN days and then reduce the dose to 5mg TWICE DAILY thereafter. As discussed, please monitor for signs and symptoms of bleeding. If you need to take something for pain, please utilize tylenol and avoid aspirin or ibuprofen/Motrin/naproxen as these can increase risks of bleeding. You lipid panel was performs and your cholesterol and triglycerides are well controlled. You may want to stop your fish oil during this time as this also can thin your blood. You may resume this medication once off of the Eliquis, which will likely be at least 3 months in duration. You have been provided a coupon for the first 30-days free by our case management department. You will be set up a follow up appointment with Hematology for further evaluations of hypercoagulability testing that could not be performed as you were already placed on blood thinners and that can alter these tests. The results from the labs that were able to be drawn will be resulted in the upcoming week. As discussed, this may be from the swelling/pain in your lower leg from insect bite and travelled in the meantime, however it is a good idea to follow up to make sure there isn't any underlying cause for clot formation. Please return to the emergency department with any worsening chest pain, shortness of breath, bleeding or for any other symptoms that are concerning for you. Please follow up with your primary care provider in the next week to monitor your progress since hospitalizations. It has been a pleasure being a part of the medical team providing for you while you have been in the hospital. Take care! Addtl Fish Roe Technician Provider Instructions: Medication Instructions: Your condition is typically treated with an anticoagulant. Anticoagulants will thin your blood to help prevent new clots. * You should take her medication exactly as directed. * Never skip a dose. * Never take a double dose. If you miss a dose, take it as soon as you remember. Call your Primary Care doctor if you experience any of the following: * Swelling or Pain in your leg * Sudden, continuous pain deep in a muscle * Pain that worsens when you are active or when you stand still for a long time * Chest Pain * Sudden Shortness of Breath * Rapid or pounding heart beat * Fainting * Dizziness * Cough with blood or bloody sputum * Sweating more than normal * Bruises * Heavy or uncontrolled bleeding * Blood in your urine, stool or vomit * Black or tarry stools Caring for Your Self at Home: * Avoid sitting, standing or lying down for long periods without moving your legs and feet * When traveling by car, stop to get out and move around at least once every 3 hours * On long airplane, train or bus rides, get up and move around when possible * If you can't get up, wiggle your toes and tighten your calves to keep your blood moving Follow Up: It is important for you to keep your follow up appointments with your medical provider. Pending Studies at Discharge: Yes Studies:: Factor V Leiden, Homocysteine, MTHFR Stand-Alone Forms: [employer], Smoking Cessation Medications and DC Order Prescriptions: New Eliquis 5 mg Tablet See Rx Instructions .ROUTE .COMPLEX Qty: 74 RF: 0 acetaminophen 325 mg Tablet 650 mg PO Q4H PRN (Reason: pain) 30 Days RF: 0 Continued multivitamin [Daily Multi-Vitamin] Tablet 1 tab PO DAILY RF: 0 ascorbic acid (vitamin C) 1,000 mg tablet 1,000 mg PO DAILY RF: 0 vitamin E 200 unit capsule 200 units PO DAILY RF: 0 alfalfa 250 mg tablet 1,250 mg PO DAILY RF: 0 garlic 1,000 mg capsule 1,000 mg PO DAILY RF: 0 calcium carbonate [Calcium 500] 500 mg calcium (1,250 mg) tablet 500 mg PO DAILY RF: 0 cholecalciferol (vitamin D3) [Vitamin D3] 25 mcg (1,000 unit) Capsule 1,000 unit PO DAILY RF: 0 Discontinued omega-3 fatty acids 1,000 mg capsule 1,000 mg PO DAILY RF: 0 Discharge Orders: Discharge Order (Routine); Ordered 07/18/20 Ordered By: Ida Benjamin Admission Data Admit Date/Time: 07/17/20 01:52 Attending Provider: Brianna Live Admit Provider: Sascha Tucker Primary Care Provider: Yvon Orlando Other Providers: Alisha Oliver Other Interventions: Discharge Summary Assessment (RN) Last Done: 07/18/20 10:53 Supervising Physician Co-Signing Physician Notes Pt seen and examined by me. Pt is doing well with tx. Still with slight chest pain on deep inspiration, but improving. No SOB. Tolerating PO without issue. Agree with HPI/ROS as noted by PA Hrt: RRR, neg for edema Pulm: CTA, neg for resp distress Agree with plan as outlined above PE, hypercoag pending although full workup not done as labs were not drawn prior to starting anticoagulation Home with khanh Coding Level of Care Code 20044 OBS Care - Discharge Diagnoses Pulmonary embolism I26.94 Pulmonary embolism type: multiple subsegmental (without acute cor pulmonale) Chest pain R07.9 Chest pain type: unspecified DVT prophylaxis Z29.9
[2020-07-18] MEDS: ACETAMINOPHEN 325 MG TAB PO PRN (09:50)
[2020-07-18] MEDS ORDERED: APIXABAN 5 MG TABLET PO SCH (21:00)
== END 2020-07-18 11:34 | disposition home or self-care (01) ==
LOC: ED 20:06 → 2W 20:06 → SUATTDRO 07-17 00:30 → 2W 07-17 01:20